=== PATIENT | female | born 1960 | race African-American/Black ===

== ENCOUNTER 2018-12-01 20:02 | Emergency (ER) | payer OTHER ==
[2018-12-01] MEDS ORDERED: ALBUTEROL SO4 2.5/IPRATROPIUM 0.5 INH SOL 3 ML VIAL.NEB. NEB ONE (20:10)
[2018-12-01 20:13] VITALS: BP 126/83; PULSE 90; TEMP 97.3; BMI 29.2
--- NOTE | 2018-12-01 20:15 | PDOC ---
History of Present Illness - General Chief Complaint: Asthma Stated Complaint: ASTHMA Time Seen by Provider: 12/01/18 20:15 - History of Present Illness Initial Comments: 12/01/18 20:15 Ms. Lewis is a 57 yo female w/ pmh of Asthma, COPD, and sleep apnea who presents for evaluation of 1 day history of shortness of breath. Patient reports she has not had an asthma exacerbation in over a year and has no medications at home. Was feeling in her normal state of health until became short of breath today and elected to come in the ED for treatment. Had been feeling well until this occurred. The patient denies chest pain, headache and dizziness. Denies fever, chills, nausea, vomit, diarrhea and constipation. Denies dysuria, frequency, urgency and hematuria. Past History - Past Medical History Allergies/Adverse Reactions: Allergies Allergy/AdvReac Type Severity Reaction Status Date / Time Iodinated Contrast- Oral and Allergy Verified 12/01/18 21:21 IV Dye Home Medications: Ambulatory Orders Albuterol Sulfate Inhaler - [Ventolin Hfa Inhaler -] 1 - 2 inh PO Q4H #1 inhaler 12/01/18 - Suicide/Smoking/Psychosocial Hx Smoking History: Never smoked Have you smoked in the past 12 months: No Information on smoking cessation initiated: No Hx Alcohol Use: No Drug/Substance Use Hx: No Review of Systems - Review of Systems Comments:: 12/01/18 20:38 GENERAL/CONSTITUTIONAL: No fever or chills. No weakness. HEAD, EYES, EARS, NOSE AND THROAT: No change in vision. No ear pain or discharge. No sore throat. CARDIOVASCULAR: +Shortness of breath as described. No chest pain. RESPIRATORY: No cough, wheezing, or hemoptysis. GASTROINTESTINAL: No nausea, vomiting, diarrhea or constipation. GENITOURINARY: No dysuria, frequency, or change in urination. MUSCULOSKELETAL: No joint or muscle swelling or pain. No neck or back pain. SKIN: No rash NEUROLOGIC: No headache, vertigo, loss of consciousness, or change in strength/ sensation. ENDOCRINE: No increased thirst. No abnormal weight change HEMATOLOGIC/LYMPHATIC: No anemia, easy bleeding, or history of blood clots. ALLERGIC/IMMUNOLOGIC: No hives or skin allergy. *Physical Exam - Vital Signs Last Vital Signs Temp Pulse Resp BP Pulse Ox 97.3 F L 90 18 126/83 100 12/01/18 20:11 12/01/18 20:11 12/01/18 20:11 12/01/18 20:11 12/01/18 20:11 - Physical Exam Comments: 12/01/18 20:39 GENERAL: Awake, alert, and fully oriented, in no acute distress HEAD: No signs of trauma, normocephalic, atraumatic EYES: PERRLA, EOMI, sclera anicteric, conjunctiva clear ENT: Auricles normal inspection, hearing grossly normal, nares patent, oropharynx clear without exudates. Moist mucosa NECK: Normal ROM, supple, no lymphadenopathy, JVD, or masses LUNGS: +Patient diffusely wheezy throughout lung valera. HEART: Regular rate and rhythm, normal S1 and S2, no murmurs, rubs or gallops, peripheral pulses normal and equal bilaterally. ABDOMEN: Soft, nontender, normoactive bowel sounds. No guarding, no rebound. No masses EXTREMITIES: Normal inspection, Normal range of motion, no edema. No clubbing or cyanosis. NEUROLOGICAL: Cranial nerves II through XII grossly intact. Normal speech, normal gait, no focal sensorimotor deficits SKIN: Warm, Dry, normal turgor, no rashes or lesions noted. Moderate Sedation - Procedure Monitoring Vital Signs: Procedure Monitoring Vital Signs Temperature 97.3 F L 12/01/18 20:11 Pulse Rate 90 12/01/18 20:11 Respiratory Rate 18 12/01/18 20:11 Blood Pressure 126/83 12/01/18 20:11 O2 Sat by Pulse Oximetry (%) 100 12/01/18 20:11 Medical Decision Making - Medical Decision Making 12/01/18 20:43 Ms. Lewis is a 57 yo female w/ pmh as described who presents for evaluation of symptoms c/w asthma exacerbation. Patient otherwise well appearing and treated with duonebs, steroids, and evaluated with CXR. 12/01/18 21:52 CXR negative. Patient greatly improved with above treatment. No further wheezing appreciated on repeat exam. Discharging to home w/ Rx for ventolin inhaler. No concern for acute process at this time. Discharging to home. *DC/Admit/Observation/Transfer Diagnosis at time of Disposition: Asthma exacerbation Qualifiers: Asthma severity: unspecified severity Asthma persistence: unspecified Qualified Code(s): J45.901 - Unspecified asthma with (acute) exacerbation - Discharge Dispostion Disposition: HOME - Prescriptions Prescriptions: Albuterol Sulfate Inhaler - [Ventolin Hfa Inhaler -] 1 - 2 inh PO Q4H #1 inhaler - Referrals Referrals: Ana Navarrete [Primary Care Provider] - - Patient Instructions Printed Discharge Instructions: Asthma -- Adult Additional Instructions: You were evaluated today in the emergency room for your asthma. No concerning findings were found at this time and your symptoms improved following breathing treatments and oral steroids. We have also sent a prescription to your pharmacy for a rescue inhaler. Please follow-up with primary care provider for further evaluation later this week. Return to ER if any further shortness of breath, fever, chills, or other concerning symptoms. - Post Discharge Activity
[2018-12-01] MEDS ORDERED: DEXAMETHASONE LIQUID 0.5 MG/5 ML 240 ML BULK BOTTLE PO ONE (20:37)
[2018-12-01] MEDS ORDERED: DEXAMETHASONE SOD PHOSPHATE 10 MG/1 ML VIAL ONE (20:39)
[2018-12-01] MEDS ORDERED: DEXAMETHASONE 4 MG TABLET (FP) PO ONE (20:45)
--- NOTE | 2018-12-01 21:27 | PDOC ---
Attending Attestation - Resident Resident Name: Bi Rivas - ED Attending Attestation I have performed the following: I have examined & evaluated the patient, The case was reviewed & discussed with the resident, I agree w/resident's findings & plan - HPI HPI: 12/01/18 21:25 [id number], with a significant past medical history of asthma, COPD, allergies and sleep apnea, who presents to the emergency department with difficulty breathing and wheezing earlier today after exposure to family member who brought over a puppy/pitbull.. Patient notes she has not taken any of her at home treatments or used inhaler x 1 year. She denies recent fevers, chills, headache or dizziness. She denies recent nausea, vomit, diarrhea or constipation. She denies recent dysuria, frequency, urgency or hematuria. She denies recent chest pain or palpitations. No sick contacts or travel. No new changes in medications. Allergies: seasonal Past Medical History: Asthma, copd, allergies, sleep apnea. Social history: Lives with family. No tobacco, ETOH or drug use. Surgical history: None - Physicial Exam PE: 12/01/18 21:26 NAD, well appearing, no respiratory distress. on neb treatment. PERRL, EOMI, MMM , nl conjunctiva, anicteric; neck supple. lungs clear, RRR, abdomen soft nontender. HILL x4, no focal neuro deficits. No peripheral edema. normal color for ethnicity, WWP. - Medical Decision Making 12/01/18 21:27 hpi as documented VS wnl. no respiratory distress or hypoxia actively getting albuterol-atrovent nebs and lungs clear now and well appearing clear precipitant (new puppy exposure) avoid future potential triggers and allergens given dex PO x1 here, rx albuterol inhaler to be used Q4-6 hr as needed for sob/ wheezing no cp or sob now. CXR clear, no pna. discharge in stable condition. made aware to family and pt with impression and plan, return precautions discussed PCP followup. 12/01/18 21:32
[2018-12-01] MEDS: ALBUTEROL SO4 2.5/IPRATROPIUM 0.5 INH SOL 3 ML VIAL.NEB. NEB SCH ×2 (21:39→22:05)
== END 2018-12-01 22:24 | disposition home or self-care (01) ==
LOC: JER 20:02
PROC: 3E0F7GC Introduction of Other Therapeutic Substance into Respiratory Tract, Via Natural or Artificial Opening (ICD-10-PCS; principal; 2018-12-01)
PROC: 3E0F7GC Introduction of Other Therapeutic Substance into Respiratory Tract, Via Natural or Artificial Opening (ICD-10-PCS; 2018-12-01)
DX: J45.901 Unspecified asthma with (acute) exacerbation (principal); J44.9 Chronic obstructive pulmonary disease, unspecified; G47.39 Other sleep apnea
CPT/HCPCS: 71045-TC-FY; 94640; 99281-25

== ENCOUNTER 2020-06-20 10:20 | Emergency (ER) | payer OTHER ==
[2020-06-20 10:27] VITALS: BP 106/52; PULSE 88; TEMP 98.6; BMI 27.8
--- NOTE | 2020-06-20 10:39 | PDOC ---
History of Present Illness - General Chief Complaint: Injury Stated Complaint: HEADACHE Time Seen by Provider: 06/20/20 10:39 - History of Present Illness Initial Comments: 06/20/20 12:03 59 F with PMH of HTN, asthma, COPD presented to the ED with headaches. She had a witnessed mechanical fall six days ago. She fell back on her chair. Denies Nausea, seeing double vision, ataxia. For the past three days, she is been getting a worsening headaches, severe in nature, worsening with change in position, lightheadness. She endorse phonophobio, photophobia. Rest made it better. She is not on any blood thinner. Her headache mainly locates in the back where the injury is. No radiation. PMH: see above PSH: none Med: none SS: denies smoke, drink, drug PCP: lowell Leigh. ALlergy: iodinated contrast (itchy, hives). ROS GENERAL/CONSTITUTIONAL: No fever or chills. No weakness. HEAD, EYES, EARS, NOSE AND THROAT: No change in vision. No ear pain or discharge. No sore throat. CARDIOVASCULAR: No chest pain or shortness of breath RESPIRATORY: No cough, wheezing, or hemoptysis. GASTROINTESTINAL: No nausea, vomiting, diarrhea or constipation. GENITOURINARY: No dysuria, frequency, or change in urination. MUSCULOSKELETAL: No joint or muscle swelling or pain. No neck or back pain. SKIN: No rash NEUROLOGIC:+headache, presyncope, no loss of consciousness, or change in strength/sensation. ENDOCRINE: No increased thirst. No abnormal weight change HEMATOLOGIC/LYMPHATIC: No anemia, easy bleeding, or history of blood clots. ALLERGIC/IMMUNOLOGIC: No hives or skin allergy. PE GENERAL: Awake, alert, and fully oriented, in no acute distress HEAD: normocephalic, atraumatic, small bump on the right top parietal. EYES: PERRLA, EOMI, sclera anicteric, conjunctiva clear ENT: Auricles normal inspection, hearing grossly normal, nares patent, oropharynx clear without exudates. Moist mucosa NECK: Normal ROM, supple, no lymphadenopathy, JVD, or masses LUNGS: No distress, speaks full sentences, clear to auscultation bilaterally HEART: Regular rate and rhythm, normal S1 and S2, no murmurs, rubs or gallops, peripheral pulses normal and equal bilaterally. ABDOMEN: Soft, nontender, normoactive bowel sounds. No guarding, no rebound. No masses EXTREMITIES : Normal inspection, Normal range of motion, no edema. No clubbing or cyanosis. NEUROLOGICAL: Normal Neuroexam. Cranial nerves II through XII grossly intact. Normal speech, normal gait, no focal sensorimotor deficits SKIN: Warm, Dry, normal turgor, no rashes or lesions noted 06/20/20 12:12 Past History - Medical History Allergies/Adverse Reactions: Allergies Allergy/AdvReac Type Severity Reaction Status Date / Time Iodinated Contrast Media Allergy Verified 06/20/20 10:49 Home Medications: Ambulatory Orders Albuterol Sulfate Inhaler - [Ventolin Hfa Inhaler -] 1 - 2 inh PO Q4H #1 inhaler 12/01/18 - Reproductive History Is Patient Now?: No - Psycho-Social/Smoking History Smoking History: Never smoked Have you smoked in the past 12 months: No Information on smoking cessation initiated: No - Substance Abuse Hx (Audit-C & DAST Scrn) How often the patient has a drink containing alcohol: Never Score: In Men: 4 or > Positive; In Women: 3 or > Positive: 0 Screen Result (Pos requires Nsg. Audit-10AR): Negative In the last yr the pt used illegal drug/Rx for NonMed reason: No Score: Yes response is considered Positive: 0 Screen Result (Positive result requires Nsg. DAST-10): Negative *Physical Exam - Vital Signs Last Vital Signs Temp Pulse Resp BP Pulse Ox 98.6 F 88 20 106/52 L 97 06/20/20 10:22 06/20/20 10:22 06/20/20 10:22 06/20/20 10:22 06/20/20 10:22 ED Treatment Course - LABORATORY CBC & Chemistry Diagram: 06/20/20 11:40 06/20/20 11:40 Medical Decision Making - Medical Decision Making 59 F with PMH of asthma, HTN, COPD presented to the ED with headache ddx: brain bleed ( subdural, epidural hematoma, SAH), migraine headache, tension headache, cluster headaches. Patient has no neck midline tenderness, normal range of motion, no focal neurological deficit, no loss of consciousness, no intoxication, no distracting injury. By Nexus rule, no need to scan the neck. Plan: CT head noncontrast, EKG, CBC, CBM, coag Med: tylenol,benadryl, reglan, fluid. EKG: vent 64, normal sinus rhythm. CT scan is negative for bleeding. Patient 06/20/20 12:12 06/20/20 13:06 Lab came back mostly normal, no emergent concern at this point. Patient felt better, safe to discharge home. 06/20/20 13:07 Discharge - Discharge Information Problems reviewed: Yes Clinical Impression/Diagnosis: Migraine Qualifiers: Migraine type: without aura Status migrainosus presence: with status migrainosus Intractability: not intractable Qualified Code(s): G43.001 - Migraine without aura, not intractable, with status migrainosus Condition: Good Disposition: HOME - Admission No - Follow up/Referral Referrals: Lowell Navarrete MD [Primary Care Provider] - - Patient Discharge Instructions Patient Printed Discharge Instructions: DI for Migraine Additional Instructions: You are here today for headache. We did imaging to rule out brain bleed. You feel better after the medication. If you are experienced migraine headache, please rest in a cool, quiet room. You can use over the counter NSAID pain control, please don't overdose. Read the label. Please stay hydrated, you should drink enough to pee every 3-4 hours. If you experienced worsening symptoms such as nausea, seeing double vision, can't walk straight, please come back to the ED. Please follow up with your PCP Dr. Leigh for further problem. - Post Discharge Activity
[2020-06-20] MEDS ORDERED: METOCLOPRAMIDE HCL INJECTION 10 MG/2 ML VIAL IVPUSH ONE (11:47)
[2020-06-20] MEDS ORDERED: ACETAMINOPHEN 1000 MG/100 ML VIAL (NON FORMULARY) IVPB ONE (11:47)
[2020-06-20] MEDS ORDERED: LACTATED RINGERS SOLUTION 1000 ML INFUS.BAG IV ONE (11:48)
[2020-06-20] MEDS ORDERED: METOCLOPRAMIDE HCL INJECTION 10 MG/2 ML VIAL ONE (12:06)
[2020-06-20] MEDS ORDERED: ACETAMINOPHEN INJECTION 100 ML IVPB ONE (12:07)
[2020-06-20 12:13] LABS: HEMATOCRIT 35.2 % (32.4-45.2); HEMOGLOBIN 11.6 GM/dL (10.7-15.3); MCHC 32.9 g/dl (32.0-36.0); MEAN CELL VOLUME 82.3 fl (80-96); PLATELET COUNT 465 K/MM3 (134-434); RBC 4.27 M/mm3 (3.60-5.2); RDW 15.2 % (11.6-15.6); WHITE BLOOD COUNT 11.7 K/mm3 (4.0-10.0)
[2020-06-20 12:23] LABS: INR 1.09 (0.83-1.09); PROTHROMBIN TIME (PATIENT) 12.9 SEC (9.7-13.0)
[2020-06-20 12:25] LABS: ACTIVATED PTT 34.8 SECONDS (25.2-36.5)
[2020-06-20 13:04] LABS: BILIRUBIN,TOTAL 0.5 mg/dL (0.2-1); BLOOD UREA NITROGEN 11.5 mg/dL (7-18); CALCIUM 9.8 mg/dL (8.5-10.1); POTASSIUM 4.1 mmol/L (3.5-5.1); TOT PROT 8.6 g/dl (6.4-8.2)
--- NOTE | 2020-06-20 13:48 | PDOC ---
Documentation entered by Anne Katz SCRIBE, acting as scribe for Marifer Tucker MD. Marifer Tucker MD: This documentation has been prepared by the Sterling falk Ana, SCRIBE, under my direction and personally reviewed by me in its entirety. I confirm that the documentation accurately reflects all work, treatment, procedures, and medical decision making performed by me. Attending Attestation - Resident Resident Name: Steve Pascal - ED Attending Attestation I have performed the following: I have examined & evaluated the patient, The case was reviewed & discussed with the resident, I agree w/resident's findings & plan, Exceptions are as noted - HPI HPI: 06/20/20 10:51 Patient is a 59 year old female with a significant past medical history of hypertension, asthma, COPD, and sleep apnea, who presents to the ED with worsening headaches x3 days. Patient stated that 6 days ago she fell back off her chair and it was a witnessed fall. Patient described her headache as "severe" which worsens with movement and gets better with rest. Patient endorses: lightheadedness and light sensitivity. Patient denies: any vision changes, ataxia, nausea, smoking, alcohol intake, recreational drug use, being on a blood thinner, or any other related symptoms. Allergies: iodinated contrast media - Physicial Exam PE: 06/20/20 13:33 Agree with resident exam. patient is alert and oriented and in no acute distress. Alert and oriented x 3. CN 2-12 grossly intact, ambulatory in the ED with normal gait. - Medical Decision Making 06/20/20 13:46 Pt presents to the ED complaining of headache after fall with hitting her head. Denies LOC. CT head checked to rule out intracranial bleed and is negative. Most likely post concussive MORA. Will discharge home with instructions to return to the ED for worsening symptoms. Discharge - Discharge Information Problems reviewed: Yes Clinical Impression/Diagnosis: Migraine Qualifiers: Migraine type: without aura Status migrainosus presence: with status migrainosus Intractability: not intractable Qualified Code(s): G43.001 - Migraine without aura, not intractable, with status migrainosus Condition: Good Disposition: HOME - Follow up/Referral Referrals: Lowell Navarrete MD [Primary Care Provider] - - Patient Discharge Instructions Patient Printed Discharge Instructions: DI for Migraine Additional Instructions: You are here today for headache. We did imaging to rule out brain bleed. You feel better after the medication. If you are experienced migraine headache, please rest in a cool, quiet room. You can use over the counter NSAID pain control, please don't overdose. Read the label. Please stay hydrated, you should drink enough to pee every 3-4 hours. If you experienced worsening symptoms such as nausea, seeing double vision, can't walk straight, please come back to the ED. Please follow up with your PCP Dr. Leigh for further problem. - Post Discharge Activity
--- NOTE | 2020-06-21 13:25 | EKG ---
Test Reason : Blood Pressure : / mmHG Vent. Rate : 064 BPM Atrial Rate : 064 BPM P-R Int : 124 ms QRS Dur : 082 ms QT Int : 358 ms P-R-T Axes : 059 035 025 degrees QTc Int : 369 ms NORMAL SINUS RHYTHM NONSPECIFIC T WAVE ABNORMALITY ABNORMAL ECG WHEN COMPARED WITH ECG OF 18-SEP-2003 13:35, NONSPECIFIC T WAVE ABNORMALITY, WORSE IN INFERIOR LEADS NONSPECIFIC T WAVE ABNORMALITY NOW EVIDENT IN ANTEROLATERAL LEADS QT HAS SHORTENED Confirmed by Mackenzie Bird ([id number]) on 06/21/2020 1:24:30 PM Referred By: Confirmed By:Mackenzie Bird
== END 2020-06-20 13:09 | disposition home or self-care (01) ==
LOC: JER 10:20
PROC: 3E033NZ Introduction of Analgesics, Hypnotics, Sedatives into Peripheral Vein, Percutaneous Approach (ICD-10-PCS; principal; 2020-06-20)
PROC: 3E033GC Introduction of Other Therapeutic Substance into Peripheral Vein, Percutaneous Approach (ICD-10-PCS; 2020-06-20)
DX: G43.001 Migraine without aura, not intractable, with status migrainosus (principal)
CPT/HCPCS: 36415; 70450-TC; 80053; 85027; 85610; 85730; 93005; 93010; 99285-25; J0131

== ENCOUNTER 2020-07-28 05:25 | Inpatient (IN) | payer OTHER ==
[2020-07-25 14:31] VITALS: BMI 27.8
[2020-07-28] MEDS ORDERED: PHENAZOPYRIDINE HCL 100 MG TABLET (FP) PO ONE (07:00)
[2020-07-28] MEDS ORDERED: CEFAZOLIN 2 GM/D5W 2 GM/50 ML ML IVPB ONE (07:00)
[2020-07-28] MEDS ORDERED: ceFAZolin SODIUM 1 GM VIAL ONE (07:03)
[2020-07-28] MEDS ORDERED: ROPIVACAINE HCL 0.5% 30ML VIAL ONE (07:14)
[2020-07-28] MEDS ORDERED: MIDAZOLAM HCL 2 MG/2 ML SINGLE DOSE VIAL ONE ×2 (07:15)
[2020-07-28] MEDS ORDERED: PROPOFOL 20 ML ONE ×2 (07:33)
[2020-07-28] MEDS ORDERED: SUCCINYLCHOLINE CHLORIDE 200 MG/10 ML SYRINGE ONE (07:33)
[2020-07-28] MEDS ORDERED: ROCURONIUM BROMIDE 50 MG/5 ML SYRINGE ONE (07:33)
--- NOTE | 2020-07-28 07:44 | HP ---
History & Physical Update - History History: No Change - Physical Physical: No Change - Assessment Assessment: No Change - Plan Plan: No Change (Full H&P in chart from 07/24/20)
[2020-07-28] MEDS ORDERED: ceFAZolin SODIUM 1 GM VIAL IVPB ONE (08:00)
[2020-07-28] MEDS ORDERED: EPHEDRINE SULFATE/0.9% NACL/PF 50 MG/10 ML SYRINGE NR ONE (08:24)
[2020-07-28] MEDS ORDERED: NEOSTIGMINE METHYLSULFATE 0.5 MG/ML - 10 ML MDV ONE (09:11)
--- NOTE | 2020-07-28 09:44 | OP ---
Operative Note - Note: Operative Date: 07/28/20 Pre-Operative Diagnosis: fibroid uterus Operation: Abdominal hysterectomy, bilateral salpingectomy/oopherectomy, oversew of bladder defect Post-Operative Diagnosis: Same as Pre-op Surgeon: Della Orozco Ophthalmic Technician: Rajat Kirkpatrick Anesthesiologist/PEDICAB DRIVER: Armani Méndez Anesthesia: General Estimated Blood Loss (mls): 250 Operative Report Dictated: Yes
[2020-07-28] MEDS ORDERED: oxyCODONE HCL 5 MG TABLET PO PRN (09:45)
[2020-07-28] MEDS ORDERED: SIMETHICONE 80 MG TAB.CHEW (FP) PO PRN (09:45)
[2020-07-28] MEDS ORDERED: DOCUSATE SODIUM 100 MG CAPSULE (FP) PO PRN (09:45)
[2020-07-28] MEDS ORDERED: IBUPROFEN 800 MG/8 ML IJ IVPB PRN (09:45)
[2020-07-28] MEDS ORDERED: ONDANSETRON 4 MG/2 ML VIAL IVPUSH PRN (09:45)
[2020-07-28] MEDS ORDERED: BISACODYL 5 MG TABLET.DR (FP) PO PRN (09:45)
--- NOTE | 2020-07-28 09:45 | SURG ---
Surgery Class C Driver Note Class C Driver: Rajat Kirkpatrick PA-C Date of Service: 07/28/20 Diagnosis: fibroid uterus Procedure: Abdominal hysterectomy, bilateral salpingectomy/oopherectomy, oversew of bladder defect I was present for the entirety of the operative procedure. For further detail, please refer to operative report. Visit type - Case Type Case Type: Scheduled - Emergency Emergency Visit: No - New patient This patient is new to me today: Yes Date on this admission: 07/28/20 - Critical Care Critical Care patient: No
[2020-07-28] MEDS ORDERED: IBUPROFEN 800 MG/8 ML IJ IVPB ONE (12:03)
[2020-07-28] MEDS: CEFAZOLIN 1 GM/D5W 1 GM/50 ML BAG IVPB SCH ×2 (14:13→21:55)
[2020-07-28] MEDS: LACTATED RINGERS SOLUTION 1,000 ML IV SCH ×2 (14:13→18:36)
[2020-07-28] MEDS: oxyCODONE HCL 5 MG TABLET PO PRN (18:36)
[2020-07-28 18:51] LABS: HEMATOCRIT 31.1 % (32.4-45.2); MCH 26.2 pg (25.7-33.7); MEAN PLT VOLUME 7.7 fl (7.5-11.1); PLATELET COUNT 407 K/MM3 (134-434); RDW 15.6 % (11.6-15.6); WHITE BLOOD COUNT 18.4 K/mm3 (4.0-10.0)
[2020-07-28 19:16] LABS: BLOOD UREA NITROGEN 9.1 mg/dL (7-18); CALCIUM 8.7 mg/dL (8.5-10.1); POTASSIUM 4.9 mmol/L (3.5-5.1)
[2020-07-29] MEDS: LACTATED RINGERS SOLUTION 1,000 ML IV SCH ×2 (04:00→15:53)
[2020-07-29] MEDS: CEFAZOLIN 1 GM/D5W 1 GM/50 ML BAG IVPB SCH (05:00)
[2020-07-29 08:09] LABS: HEMATOCRIT 27.9 % (32.4-45.2); MCH 26.3 pg (25.7-33.7); MCHC 32.3 g/dl (32.0-36.0); MEAN CELL VOLUME 81.2 fl (80-96); MEAN PLT VOLUME 7.8 fl (7.5-11.1); PLATELET COUNT 350 K/MM3 (134-434); RBC 3.43 M/mm3 (3.60-5.2); RDW 15.6 % (11.6-15.6); WHITE BLOOD COUNT 14.7 K/mm3 (4.0-10.0)
[2020-07-29 08:35] LABS: CALCIUM 8.6 mg/dL (8.5-10.1); POTASSIUM 4.4 mmol/L (3.5-5.1)
--- NOTE | 2020-07-29 10:28 | PN ---
Progress Note (short form) - Note Progress Note: Surgery: Pt without any nausea. Abd pain controlled. Vital Signs Period Temp Pulse Resp BP Sys/Bernal Pulse Ox Last 24 Hr 97.7 F-99.6 F 86-102 15-24 113-142/70-93 97-100 Godwin:1700ml yellow urine GEN: A&0x3, NAD ABD; soft, non-distended, inc tenderness. Inc c/d/i. LE: No swelling or tenderness b/l to LE. SCDs in place. CBC, BMP 07/29/20 06:54 07/29/20 06:54 A/p: 59 yo female s/p Abdominal hysterectomy, bilateral salpingectomy/oopherectomy, oversew of bladder defect Clears as tolerated to day advance when having flatus Continue godwin today, TOV in the am OOB and ambulate Pain management DVT PPX with SCDs, lovenox D/w Dr. Orozco
[2020-07-29] MEDS: ENOXAPARIN NA (PORCINE) 40 MG/0.4 ML DISP.SYRIN SQ SCH (10:41)
[2020-07-29] MEDS: oxyCODONE HCL 5 MG TABLET PO PRN (12:48)
--- NOTE | 2020-07-29 13:45 | PN ---
Progress Note (short form) - Note Progress Note: Anesthesiologist post op note. POD#1 S/P Abdominal hysterectomy, bilateral salpingectomy/oopherectomy, oversew of bladder defect. Pat seen and examined. VSS. awake, alert and oriented X3. ambulating. Toleratinhg clear liquids. No apparent post anesthesia complications.
[2020-07-30] MEDS: oxyCODONE HCL 5 MG TABLET PO PRN (01:36)
[2020-07-30 07:58] LABS: BASO % 0.1 % (0-2.0); HEMATOCRIT 29.5 % (32.4-45.2); HEMOGLOBIN 9.7 GM/dL (10.7-15.3); MCH 27.3 pg (25.7-33.7); MEAN CELL VOLUME 82.7 fl (80-96); MONO % 7.3 % (3.8-10.2); NEUT % 80.6 % (42.8-82.8); PLATELET COUNT 358 K/MM3 (134-434); RBC 3.56 M/mm3 (3.60-5.2); RDW 15.1 % (11.6-15.6); WHITE BLOOD COUNT 16.6 K/mm3 (4.0-10.0)
[2020-07-30] MEDS: ENOXAPARIN NA (PORCINE) 40 MG/0.4 ML DISP.SYRIN SQ SCH (09:20)
[2020-07-30] MEDS ORDERED: BUDESONIDE/FORMETEROL FUMARATE 80/4.5 mcg INHALER IH PRN (10:01)
[2020-07-30] MEDS ORDERED: ALBUTEROL SO4 HFA INHALER IH PRN (10:01)
--- NOTE | 2020-07-30 14:35 | PN ---
Progress Note (short form) - Note Progress Note: Surgery: Pt with some nausea. Abd pain controlled. Vital Signs Period Temp Pulse Resp BP Sys/Bernal Pulse Ox Last 24 Hr 97.7 F-99 F 93-99 20-20 113-128/70-93 91-96 Godwin:2400ml yellow urine GEN: A&0x3, NAD ABD; soft, non-distended, inc tenderness. Inc c/d/i. LE: No swelling or tenderness b/l to LE. SCDs in place. CBC, BMP 07/29/20 06:54 07/29/20 06:54 A/p: 59 yo female s/p Abdominal hysterectomy, bilateral salpingectomy/oopherectomy, oversew of bladder defect Clears as tolerated to day advance when having flatus Continue godwin today, TOV in the am OOB and ambulate Pain management DVT PPX with SCDs, lovenox Home medications renewed D/w Dr. Orozco
[2020-07-30] MEDS: ACETAMINOPHEN 325 MG TABLET (FP) PO PRN (17:07)
[2020-07-30] MEDS: ceFAZolin 2 GRAM PREMIX BAG IVPB SCH (17:07)
[2020-07-30] MEDS: PHENAZOPYRIDINE HCL 100 MG TABLET (FP) PO SCH (17:39)
--- NOTE | 2020-07-30 19:09 | OP ---
DATE OF OPERATION: 07/28/2020 PREOPERATIVE DIAGNOSIS: Leiomyomatous uterus. POSTOPERATIVE DIAGNOSIS: Leiomyomatous uterus. OPERATION: Total abdominal hysterectomy, bilateral salpingectomy, and bilateral salpingooophorectomy. Also oversewing of a small bladder defect at the top of the dome of the bladder. SURGEON: Jenny Orozco MD. MOLDING ASSOCIATE: EZE Steve. ANESTHESIA: General. ANESTHESIOLOGIST: Armani Méndez MD. ESTIMATED BLOOD LOSS: 250 mL. PROCEDURE: Patient was taken to the operating room, placed in supine position. Prepped and draped in usual sterile fashion. Timeout was performed in accordance with hospital regulation. Pfannenstiel skin incision was made with the scalpel. Cautery was then used to go through layers of abdominal wall to the fascia. Fascia was cut in the midline. Cautery was then used to open the fascia in a smiley fashion. Jeny was then used to bluntly and sharply dissect the rectus muscles off the fascia. Muscle was split in the midline. Peritoneal cavity was entered and leiomyomatous uterus was exteriorized. Bowels packed out of the abdominal field using lap pads. The infundibulopelvic ligament was identified and clamped and cut. Uterine artery was identified and clamped and cut. Cardinal ligament was identified and clamped and cut on the left side. Same procedure was repeated on the right side. Infundibulopelvic ligament was identified and clamped and cut. Uterine artery was identified and clamped and cut using LigaSure. Cardinal ligament was identified and clamped and cut. Vesicouterine reflexion had been bluntly dissected out and off the field. Scalpel was then used to enter the vagina, and Jorgensens were then used to cut the vagina away from the cervix. 2-0 V-Loc suture was then used to close the vagina in a continuous fashion. Hemostasis was achieved. Examination of the bladder reveals small defect, which was oversewn using 2-0 Vicryl suture and embrocated with 2-0 Vicryl suture. Bladder wall appeared to be very thin on the patient. Packed pads were then removed from the abdomen. Peritoneum was then closed using 0 Vicryl suture. Muscle was approximated in the midline using 0 Vicryl suture. Fascia was then closed in 2 parts using 0 Vicryl suture. Subcutaneous was then approximated, and 3-0 Vicryl suture was then used to close the incision in subcuticular fashion. Wound was washed and dressed. Patient tolerated procedure well. Estimated blood loss was 250 mL. JENNY OROZCO M.D. [id number]
[2020-07-30] MEDS: BUDESONIDE/FORMETEROL FUMARATE 80/4.5 mcg INHALER IH SCH (21:07)
[2020-07-30 22:05] LABS: BASO % 0.4 % (0-2.0); EOS % 2.1 % (0-4.5); HEMATOCRIT 28.2 % (32.4-45.2); HEMOGLOBIN 9.1 GM/dL (10.7-15.3); LYMPH % 21.6 % (8-40); MCH 26.4 pg (25.7-33.7); MCHC 32.4 g/dl (32.0-36.0); MEAN CELL VOLUME 81.7 fl (80-96); MEAN PLT VOLUME 8.1 fl (7.5-11.1); MONO % 7.6 % (3.8-10.2); NEUT % 68.3 % (42.8-82.8); PLATELET COUNT 335 K/MM3 (134-434); RBC 3.46 M/mm3 (3.60-5.2); RDW 15.2 % (11.6-15.6); WHITE BLOOD COUNT 15.5 K/mm3 (4.0-10.0)
[2020-07-30 22:28] LABS: BLOOD UREA NITROGEN 8.8 mg/dL (7-18); CALCIUM 8.9 mg/dL (8.5-10.1); CREATININE 0.8 mg/dL (0.55-1.3); POTASSIUM 4.1 mmol/L (3.5-5.1)
[2020-07-31] MEDS: ceFAZolin 2 GRAM PREMIX BAG IVPB SCH ×2 (01:56→09:42)
[2020-07-31 08:21] LABS: BASO % 0.6 % (0-2.0); EOS % 2.2 % (0-4.5); HEMATOCRIT 26.9 % (32.4-45.2); HEMOGLOBIN 8.7 GM/dL (10.7-15.3); MCH 26.4 pg (25.7-33.7); MCHC 32.5 g/dl (32.0-36.0); MEAN CELL VOLUME 81.2 fl (80-96); MEAN PLT VOLUME 7.9 fl (7.5-11.1); MONO % 6.7 % (3.8-10.2); NEUT % 71.5 % (42.8-82.8); PLATELET COUNT 345 K/MM3 (134-434); RBC 3.31 M/mm3 (3.60-5.2); RDW 14.8 % (11.6-15.6); WHITE BLOOD COUNT 11.9 K/mm3 (4.0-10.0)
[2020-07-31 09:22] LABS: CALCIUM 8.4 mg/dL (8.5-10.1); CREATININE 0.7 mg/dL (0.55-1.3)
[2020-07-31] MEDS: PHENAZOPYRIDINE HCL 100 MG TABLET (FP) PO SCH ×3 (09:42→17:49)
[2020-07-31] MEDS: ACETAMINOPHEN 325 MG TABLET (FP) PO PRN (09:42)
[2020-07-31] MEDS: ENOXAPARIN NA (PORCINE) 40 MG/0.4 ML DISP.SYRIN SQ SCH (09:44)
[2020-07-31] MEDS: BUDESONIDE/FORMETEROL FUMARATE 80/4.5 mcg INHALER IH SCH (09:44)
[2020-07-31] MEDS ORDERED: HYDROCHLOROTHIAZIDE 12.5 MG CAPSULE (FP) PO SCH (10:00)
[2020-07-31] MEDS ORDERED: LOSARTAN POTASSIUM 25 MG TABLET PO SCH (10:00)
[2020-07-31] MEDS ORDERED: TAMSULOSIN HCL 0.4 MG CAP PO SCH (10:30)
--- NOTE | 2020-07-31 10:55 | DS ---
Physical Exam: SUBJECTIVE: Patient seen and examined this am, godwin catheter replaced after no passing TOV. No BM, overall decreased appetite but tolerating solid diet. OBJECTIVE: Vital Signs Temperature 98.9 F 07/31/20 06:21 Pulse Rate 102 H 07/31/20 06:21 Respiratory Rate 20 07/31/20 06:21 Blood Pressure 127/77 07/31/20 06:21 O2 Sat by Pulse Oximetry (%) 93 L 07/31/20 06:21 Godwin: 1300ml orange tinted color PHYSICAL EXAM GENERAL: The patient is awake, alert, and fully oriented, in no acute distress. ABDOMEN: Soft, non-distended, Inc tenderness. Inc c/d/i no drainage or erythema. EXTREMITIES: no edema or calf tenderness b/l LABS CBC,CMP WBC 11.9 K/mm3 (4.0-10.0) H 07/31/20 07:10 RBC 3.31 M/mm3 (3.60-5.2) L 07/31/20 07:10 Hgb 8.7 GM/dL (10.7-15.3) L 07/31/20 07:10 Hct 26.9 % (32.4-45.2) L 07/31/20 07:10 MCV 81.2 fl (80-96) 07/31/20 07:10 MCH 26.4 pg (25.7-33.7) 07/31/20 07:10 MCHC 32.5 g/dl (32.0-36.0) 07/31/20 07:10 RDW 14.8 % (11.6-15.6) 07/31/20 07:10 Plt Count 345 K/MM3 (134-434) 07/31/20 07:10 MPV 7.9 fl (7.5-11.1) 07/31/20 07:10 Absolute Neuts (auto) 8.5 K/mm3 (1.5-8.0) H 07/31/20 07:10 Neutrophils % 71.5 % (42.8-82.8) 07/31/20 07:10 Lymphocytes % 19.0 % (8-40) 07/31/20 07:10 Monocytes % 6.7 % (3.8-10.2) 07/31/20 07:10 Eosinophils % 2.2 % (0-4.5) 07/31/20 07:10 Basophils % 0.6 % (0-2.0) 07/31/20 07:10 Nucleated RBC % 0 % (0-0) 07/31/20 07:10 Sodium 137 mmol/L (136-145) 07/31/20 07:10 Potassium 4.0 mmol/L (3.5-5.1) 07/31/20 07:10 Chloride 103 mmol/L (98-107) 07/31/20 07:10 Carbon Dioxide 26 mmol/L (21-32) 07/31/20 07:10 Anion Gap 8 MMOL/L (8-16) 07/31/20 07:10 BUN 8.0 mg/dL (7-18) 07/31/20 07:10 Creatinine 0.7 mg/dL (0.55-1.3) 07/31/20 07:10 Est GFR (CKD-EPI)AfAm 108.38 07/31/20 07:10 Est GFR (CKD-EPI)NonAf 93.51 07/31/20 07:10 Random Glucose 83 mg/dL (74-106) 07/31/20 07:10 Calcium 8.4 mg/dL (8.5-10.1) L 07/31/20 07:10 HOSPITAL COURSE: The patient was admitted to the Med-Surg Unit after an elective open abdominal hysterectomy, b/l salpingectomy/ooporectomy and repair of bladder defect. Pain management was achieved with a narcotic and non-narcotic oral and IV regimen. POD #1, the patient was placed on a clear liquis diet. She passed flatus and her diet was advanced as tolerated. Bailey-operative IV ABX were administered. DVT prophylaxis was achieved with Lovenox 40mg qd, SCDs and early ambulation. Hemoglobin and hematocrit were monitored as well as vitals and remained stable throughout admission. She did have a slight temp on POD #2 and an elevation of her WBC. Her IV abx were resumed and she was discharged on Augmentin. On the day of discharge her fevers had normalized as well and a decreasing WBC. In addition, the patient failed a TOV and her godwin catheter was replaced. She will be discharge to home with the catheter, on flomax. The patient was instructed to follow up with Dr. Orozco in the am of next week- tuesday for a ROV in her office. The patient ambulated the halls without issue. Narcotic scripts were [facility] with [facility] prior to escribe. The discharge instructions and an oral pain management plan were reviewed with the patient. All questions answered. Above plan discussed with Dr. Orozco and agreed. Date of Admission:07/28/20 Date of Discharge: 07/31/20 Minutes to complete discharge: 30 Visit type - Case Type Case Type: Scheduled - Emergency Emergency Visit: No - New patient This patient is new to me today: No
--- NOTE | 2020-07-31 13:49 | PATH ---
Surgical Pathology Report Patient Name: DISHA COWART Med. Rec. #: [id number] /Age/Gender: 1960 (Age: 59) / F Account: [id number] Location: [facility] MED/SURG Taken: 07/28/2020 Received: 07/28/2020 Reported: 07/31/2020 Physicians: Della Orozco M.D. Specimen(s) Received A: UTERUS AND CERVIX B: LEFT FALLOPIAN TUBE C: RIGHT FALLOPIAN TUBE Clinical History Leiomyomatous uterus Final Diagnosis A. UTERUS AND CERVIX, HYSTERECTOMY: LEIOMYOMATA WITH FOCAL DEGENERATIVE CHANGE (HYALINIZATION AND CALCIFICATIONS). ADENOMYOSIS. ENDOCERVICAL POLYP. INACTIVE ENDOMETRIUM. CERVIX WITH FOCAL CHRONIC CERVICITIS. B. LEFT FALLOPIAN TUBE, SALPINGO-OOPHORECTOMY: PORTION OF FALLOPIAN TUBE WITH PARATUBAL CYSTS. UNREMARKABLE LEFT OVARY. C. RIGHT FALLOPIAN TUBE, SALPINGO-OOPHORECTOMY: PORTION OF FALLOPIAN TUBE WITH PARATUBAL CYSTS. UNREMARKABLE RIGHT OVARY. Electronically Signed Diego Penaloza M.D. Gross Description A. Received in formalin labeled "uterus and cervix," is a 155 g uterus and detached cervix. No tubes or ovaries present. The specimen measures 9.0 cm from superior to inferior, 7.0 cm from anterior to posterior, and 5.1 cm from left to right. The serosa is peres-pink and smooth. The detached cervix measures 2.5 cm in length and averages 2.0 cm in diameter. The ectocervix is peres-pink, smooth and glistening. The endocervix is unremarkable. The endometrial cavity measures 3.5 cm in length and averages 1.8 cm from cornu to cornu. The endometrium is peres-red and measures up to 0.1cm in thickness. The myometrium displays abundant intramural and subserosal nodules, ranging from 0.3cm to 2.8cm in greatest dimension. The cut surface of the nodules is peres and rubbery with whorled architecture, with focal calcifications. No necrosis, discoloration, or hemorrhage present. The remaining myometrium is peres-pink and measures up to 2.3 cm in thickness. [employer] Worker sections are submitted in 12 cassettes as follows: 1: anterior cervix; 2: posterior cervix; [id number] endomyometrium with smaller intramural nodules; 5-6: posterior endomyometrium with smaller intramural nodules; 7: Additional endometrium from fundus; 8: largest nodule from subserosal; 9-12: nodules B. Received fresh labelled "left fallopian tube" is a 4 cm long by 0.5 cm in diameter portion of tissue consistent with a portion of fallopian tube with a fimbriated end. Multiple paratubal cysts measuring up to 0.4cm in greatest dimension are present. Attached ovary measuring 2.5 x 1.5 x 2.5 cm is present. Serial sections of the ovary show unremarkable cut surfaces. Clerical Office Worker sections submitted in one cassette. C. Received fresh labelled "right fallopian tube" is a 4.5 cm long by 0.5 cm in diameter portion of tissue consistent with a portion of fallopian tube with a fimbriated end. Multiple paratubal cysts measuring up to 0.3cm in greatest dimension are present. Attached ovary measuring 3.0 x 1.5 x 2.5 cm is present. Serial sections of the ovary show unremarkable cut surfaces. Clerical Office Worker sections submitted in two cassettes.
[2020-07-31 15:07] VITALS: BP 114/85; PULSE 96; TEMP 97.9
[2020-07-31] MEDS ORDERED: BISACODYL 10 MG SUPP.RECT PR ONE (15:36)
[2020-07-31] MEDS ORDERED: AMOX TR/POT CLAV 875MG/125MG TABLETS (FP) PO SCH (17:30)
== END 2020-07-31 18:59 | disposition home or self-care (01) | DRG 519 ==
LOC: J2C 05:25 → J8W 14:16
PROVIDERS: ADMIT Obstetrics & Gynecology; ATTEND Obstetrics & Gynecology
PROC: 0UT70ZZ Resection of Bilateral Fallopian Tubes, Open Approach (ICD-10-PCS; 2020-07-28)
PROC: 0UT20ZZ Resection of Bilateral Ovaries, Open Approach (ICD-10-PCS; 2020-07-28)
PROC: [UNRECOGNIZED PROCEDURE] (2020-07-28)
PROC: 0UT90ZZ Resection of Uterus, Open Approach (ICD-10-PCS; principal; 2020-07-28 07:30)
DX: D25.9 Leiomyoma of uterus, unspecified (principal)
CPT/HCPCS: 36415; 80048; 85025; 85027; 86850; 86900; 86901; 87086; 88302-TC; 88307-TC; 94010; 94760

== ENCOUNTER 2020-10-15 11:30 | Emergency (ER) | payer OTHER ==
[2020-10-15 11:47] VITALS: BP 109/71; PULSE 89; TEMP 97.8; BMI 24.9
== END 2020-10-15 12:36 | disposition home or self-care (01) ==
LOC: FER 11:30
DX: M94.0 Chondrocostal junction syndrome [Tietze] (principal)
CPT/HCPCS: 99282-25

== ENCOUNTER → 2021-08-13 | Day surgery (SDC) | payer OTHER | END | disposition home or self-care (01) | LOC: FMAMMOTONE 07:28 | PROVIDERS: ATTEND Family Medicine Geriatric Medicine | PROC: 0HBU3ZX Excision of Left Breast, Percutaneous Approach, Diagnostic (ICD-10-PCS; principal; 2021-08-13) | DX: D24.2 Benign neoplasm of left breast (principal); N64.89 Other specified disorders of breast; R92.1 Mammographic calcification found on diagnostic imaging of breast | CPT/HCPCS: 19081; 76098-TC-FY; 77063-TC; 77067-TC-52-RT; 88305-TC ==

== ENCOUNTER 2023-06-13 10:08 | Emergency (ER) | payer OTHER ==
[2023-06-13 10:31] VITALS: BP 99/65; PULSE 101; RESP 22; TEMP 98.1; BMI 28.1
[2023-06-13] MEDS ORDERED: ACETAMINOPHEN 1000 MG/100 ML BAG IVPB ONE (11:10)
[2023-06-13] MEDS ORDERED: ONDANSETRON 4 MG/2 ML VIAL IVPUSH ONE (11:10)
[2023-06-13] MEDS ORDERED: SODIUM CHLORIDE 0.9% 500 ML INFUS.BAG IV ONE (11:10)
[2023-06-13] MEDS ORDERED: ACETAMINOPHEN INJECTION 100 ML IVPB ONE (11:39)
[2023-06-13] MEDS ORDERED: ONDANSETRON 4 MG/2 ML VIAL ONE (11:39)
[2023-06-13 12:15] LABS: BASO % 0.4 % (0-2.0); EOS % 2.2 % (0-4.5); HEMOGLOBIN 12.7 GM/dL (10.7-15.3); LYMPH % 18.4 % (8-40); MCHC 34.2 g/dl (32.0-36.0); MEAN CELL VOLUME 78.9 fl (80-96); MEAN PLT VOLUME 7.5 fl (7.5-11.1); MONO % 12.6 % (3.8-10.2); NEUT % 66.4 % (42.8-82.8); PLATELET COUNT 417 10^3/uL (134-434); RBC 4.69 M/mm3 (3.60-5.2); RDW 15.6 % (11.6-15.6); WHITE BLOOD COUNT 6.5 K/mm3 (4.0-10.0)
[2023-06-13 12:45] LABS: POTASSIUM 4.4 mmol/L (3.5-5.1)
[2023-06-13 12:48] LABS: ALBUMIN 3.8 g/dl (3.4-5.0); CALCIUM 9.6 mg/dL (8.5-10.1)
[2023-06-13 12:49] LABS: BLOOD UREA NITROGEN 17.8 mg/dL (7-18)
[2023-06-13 12:51] LABS: CREATININE 1.4 mg/dL (0.55-1.3)
[2023-06-13 12:53] LABS: BILIRUBIN,TOTAL 0.3 mg/dL (0.2-1); TOT PROT 8.6 g/dl (6.4-8.2)
== END 2023-06-13 13:47 | disposition home or self-care (01) ==
LOC: JERFT 10:08
PROC: 3E033NZ Introduction of Analgesics, Hypnotics, Sedatives into Peripheral Vein, Percutaneous Approach (ICD-10-PCS; principal; 2023-06-13)
PROC: 3E033GC Introduction of Other Therapeutic Substance into Peripheral Vein, Percutaneous Approach (ICD-10-PCS; 2023-06-13)
DX: R50.9 Fever, unspecified (principal); R05.9 Cough, unspecified; R09.81 Nasal congestion; R11.2 Nausea with vomiting, unspecified; B34.9 Viral infection, unspecified; Z20.822 Contact with and (suspected) exposure to COVID-19
CPT/HCPCS: 0241U-QW; 36415; 80053; 85025; 99284-25